=== PATIENT | female | born 1950 | race Caucasian/White ===

== ENCOUNTER 2016-07-24 11:03 | Emergency (ER) | payer MEDICARE, OTHER ==
[~2016-07-24] VITALS: Ht 157.5 cm; Wt 77.0 kg
[2016-07-24 11:06] VITALS: BP 140/83; PULSE 66; RESP 16; TEMP 99.1; O2SAT 96
[2016-07-24] MEDS ORDERED: TRAVATAN PO (11:19)
[2016-07-24] MEDS ORDERED: RAMI5CAP PO (11:19)
[2016-07-24] MEDS ORDERED: POTA-245 PO (11:19)
[2016-07-24] MEDS ORDERED: ATEN50TA PO (11:19)
[2016-07-24] MEDS ORDERED: PRAV80TA2 PO (11:19)
--- NOTE | 2016-07-24 11:46 | PD ---
HPI Chief Complaint: Cold / Flu Symptoms Time Seen by Provider: 11:39 Travel History International Travel<30 days: No Contact w/Intl Traveler<30days: No Traveled to known affect area: No History of Present Illness HPI Patient is a 66-year-old female presenting with ENT URI symptoms. Present for 1.5 days. She's had nasal congestion, right ear pain, sore throat and cough. The cough is dry. She denies dyspnea, wheezing and chest pain. She has felt somewhat warm occasionally but denies fever and chills. She did not receive influenza vaccine. Current her have been traveling by and he was diagnosed earlier this week with walking pneumonia and strep throat. She does feel like she has some swollen glands anteriorly on the neck. She denies abdominal pain, diarrhea, nausea and vomiting. She recently had a UTI that was treated and she finished antibiotics approximately 6 days prior. She denies any current symptoms. She denies any pain or swelling in her legs. PFSH Past Medical History High Cholesterol: Yes Hypertension: Yes Past Surgical History Other Surgery: Yes (STENTS) Social History Alcohol Use: No Tobacco Use: No Substance Use: No Allergies-Medications (Allergen,Severity, Reaction): Coded Allergies: No Known Allergies (Unverified , 07/24/16) Reported Meds & Prescriptions Reported Meds & Active Scripts Active Magic Mouthwash Pediatric/Adult Liq (Lidocaine/Diphenhydr/Alum/Mg/Simeth) 60 Ml Susp 5-10 Ml SWISH-SPIT ACHS PRN Please makes 40 mL each: 2% viscous lidocaine, liquid diphenhydramine and Maalox liquid Tessalon Perles (Benzonatate) 100 Mg Cap 100-200 Mg PO TID PRN Azithromycin 250 Mg Tab 250 Mg PO DIRECTED Take 2 tabs (500 mg) on day 1 then 1 tab daily x 4 days. Reported [Travatan] 5 Mg PO DAILY Klor-Con M20 (Potassium Chloride Microencaps) 20 Meq Tab 20 Meq PO DAILY Pravastatin 80 Mg Tab 80 Mg PO DAILY Atenolol 50 Mg Tab 50 Mg PO DAILY Ramipril 5 Mg Cap 5 Mg PO DAILY Review of Systems Except as stated in HPI: all other systems reviewed are Neg Physical Exam Narrative GENERAL: Well-developed and well-nourished adult female in no acute distress. Nontoxic appearing. SKIN: Warm and dry. Good turgor without tenting. HEAD: Normocephalic and atraumatic. EYES: PERRL bilaterally, 5mm. EOMI bilaterally. No injection or icterus present. No proptosis. Lids without edema or erythema. ENT: Bilateral ear canals are non-edematous/non-erythematous without otorrhea. Right TM is bulging and erythematous without perforation or effusion. Left TM has no distortion, erythema or perforation. Nasal mucosa edematous and edematous with scant clear discharge, septum intact and midline. Buccal mucosa pink and moist. Oropharynx has minimal erythema of the anterior tonsillar pilar' s without tonsillar hypertrophy, masses, swelling, asymmetry and exudates. Uvula midline and airway patent. NECK: Supple, no meningeal signs. Trachea midline, no JVD. No cervical or facial lymphadenopathy. CARDIOVASCULAR: Regular rate and rhythm without murmurs, rubs, clicks or gallops. Radial and posterior tibial pulses 2+ bilaterally. No pedal edema. Negative bilateral Homans sign. RESPIRATORY: Clear to auscultation bilaterally with symmetrical rise and fall, no distress or use of accessory muscles. No stridor, tripoding or drooling. GASTROINTESTINAL: Non-tender, non-distended. Normal bowel sounds all 4 quadrants. No masses or organomegaly present. MUSCULOSKELETAL: No gait disturbances. Patient freely moving all four extremities spontaneously. Extremities without clubbing, cyanosis, or edema. No obvious deformities. NEUROLOGIC: CN II-XII grossly intact. Awake and alert. Motor grossly within normal limits. Normal speech. PSYCHIATRIC: Appropriate mood and affect; insight and judgment normal. Data Data Last Documented VS Vital Signs Date Time Temp Pulse Resp B/P Pulse Ox O2 Delivery O2 Flow Rate FiO2 07/24/16 11:06 99.1 66 16 140/83 96 Orders Influenzae A/B Antigen (07/24/16 11:38) Group A Rapid Strep Screen (07/24/16 11:38) Strep Culture (Group A) (07/24/16 11:46) MDM Medical Decision Making Medical Screen Exam Complete: Yes Emergency Medical Condition: Yes Differential Diagnosis Viral syndrome versus influenza versus bronchitis versus otitis media versus pneumonia unlikely Narrative Course Patient is a 66-year-old female presenting with ENT/URI symptoms for less than 2 days. She reports feeling somewhat warm but denies outright fever. She is afebrile, has not taken any antipyretics today. She is nontoxic-appearing and has evidence of midline status on exam. Lungs clear to auscultation, no increased work of breathing. She is not tachycardic or hypoxic. Exposed to her who has had strep throat and "walking pneumonia". She is evidence of right otitis media on exam. Rapid strep and rapid flu negative. As she has otitis media we'll prescribe azithromycin as this will cover for early strep and atypical pneumonia. Given Tessalon Perles and Magic mouthwash as well.See discharge paperwork for further instructions. The plan was discussed with the patient who acknowledged their understanding and agreement. Reinforced the follow-up with primary care is critically important. Patient instructed on emergent conditions that should prompt return to ED. Diagnosis Primary Impression: Right otitis media Qualified Code: H65.91 - Right non-suppurative otitis media Additional Impression: Upper respiratory infection Qualified Code: J06.9 - Upper respiratory tract infection, unspecified type Patient Instructions: General Instructions, Otitis Media (ED), Upper Respiratory Infection (ED) Additional Instructions: Take medication as prescribed OTC Mucinex and cough suppressant as needed OTC Tylenol or Ibuprofen for fever and discomfort Drink lots of fluid to help clear mucous/drainage and stay hydrated Follow up with PCP in 2 days Return to the ED for any acute worsening of symptoms Med/Other Pt SpecificInfo: Prescription(s) given Scripts [id number]-Jod-Alum-Simeth Liq (Magic Mouthwash Pediatric/Adult Liq)60 Ml Susp5-10 Ml SWISH-SPIT ACHS PRN (SORE THROAT) #120 ML Please makes 40 mL each: 2% viscous lidocaine, liquid diphenhydramine and Maalox liquid Prov:Kenisha Arevalo DO 07/24/16 Benzonatate (Tessalon Perles)100 Mg [id number] Mg PO TID PRN (COUGH) #20 CAP Prov:Kenisha Arevalo DO 07/24/16 Azithromycin 250 Mg [id number] Mg PO DIRECTED #6 TAB Take 2 tabs (500 mg) on day 1 then 1 tab daily x 4 days. Prov:Kenisha Arevalo DO 07/24/16 Disposition: 01 DISCHARGE HOME Condition: Stable Ezequiel Tran III Jul 24, 2016 11:46
[2016-07-24] MEDS ORDERED: MAGICPED SWISH-SPIT (12:22)
[2016-07-24] MEDS ORDERED: AZIT250T3 PO (12:22)
[2016-07-24] MEDS ORDERED: BENZ100 PO (12:22)
== END 2016-07-24 12:52 | disposition home or self-care (01) ==
LOC: PHEFT 11:03
DX: H66.91 Otitis media, unspecified, right ear (principal); J06.9 Acute upper respiratory infection, unspecified; E78.00 Pure hypercholesterolemia, unspecified; I10 Essential (primary) hypertension
CPT/HCPCS: 87081; 87804; 87880; 99283